=== PATIENT | male | born 1965 | race Caucasian/White ===

== ENCOUNTER 2019-07-02 08:55 | Inpatient (IN) | payer MEDICAID ==
[~2019-07-02] VITALS: Ht 188 cm; Wt 105.2 kg
[2019-07-02] MEDS ORDERED: LISI-661 PO (09:04)
[2019-07-02] MEDS ORDERED: SERT100T12 PO (09:04)
[2019-07-02] MEDS ORDERED: METF-960 PO (09:04)
[2019-07-02] MEDS ORDERED: LITH300C3 PO (09:04)
[2019-07-02] MEDS ORDERED: TRAZ-220 PO (09:04)
[2019-07-02 09:16] LABS: GLUCOSE,POINT OF CARE 135 MG/DL (70-110)
[2019-07-02 09:31] LABS: BASOPHILS % (AUTO) 0.3 % (0.0-2.0); EOSINOPHILS % (AUTO) 3.3 % (1.0-6.0); HEMATOCRIT 40.5 % (41-53); HEMOGLOBIN 13.4 g/dL (13.5-17.5); LYMPHOCYTES # (AUTO) 0.6 K/uL (1.0-4.8); LYMPHOCYTES % (AUTO) 11.4 % (22.0-44.0); MEAN CORPUSCULAR HEMOGLOBIN 28.3 pg (26.0-34.0); MEAN CORPUSCULAR VOLUME 86 fL (80-100); MONOCYTES # (AUTO) 0.5 K/uL (0.1-1.0); MONOCYTES % (AUTO) 10.4 % (2.0-9.0); NEUTROPHILS # (AUTO) 3.9 K/uL (1.8-7.7); NEUTROPHILS % (AUTO) 74.6 % (40.0-70.0); PLATELET COUNT (AUTO) 71 K/uL (150-450); RED BLOOD CELL COUNT(AUTO) 4.73 MIL/uL (4.50-5.90); RED CELL DISTRIBUTION WIDTH 14.1 % (11.5-14.5)
[2019-07-02 09:40] LABS: ANION GAP 10 mmol/L (8-16); CALCIUM, TOTAL 9.4 mg/dL (8.8-10.5); CARBON DIOXIDE 21 mmol/L (22-29); CHLORIDE 106 mmol/L (98-107); CREATININE 1.12 mg/dL (0.60-1.30); GLOMERULAR FILTR. RATE CALC > 60 mL/min (>60); GLUCOSE,RANDOM 143 mg/dL (70-110); SODIUM SERUM 137 mmol/L (136-145); UREA NITROGEN, BLOOD 30 mg/dL (7-18)
[2019-07-02 09:46] LABS: ALANINE AMINOTRANSFERASE 41 U/L (12-78); ALBUMIN 3.2 g/dL (3.4-5.0); ALKALINE PHOSPHATASE 82 U/L (46-116); ASPARTATE AMINOTRANSFERASE 34 U/L (15-37); BILIRUBIN,TOTAL 0.9 mg/dL (0.1-1.0); TOTAL PROTEIN, SERUM 6.5 g/dL (6.4-8.2)
[2019-07-02 10:18] LABS: LITHIUM 0.44 mmol/L (0.60-1.20)
[2019-07-02 10:26] LABS: ACETAMINOPHEN < 2 mcg/mL (10-30)
[2019-07-02] MEDS ORDERED: ZOLPIDEM TARTRATE 10 MG TABLET PO PRN (11:45)
[2019-07-02] MEDS ORDERED: LORazepam 2 MG TABLET PO PRN (11:45)
[2019-07-02] MEDS ORDERED: HALOPERIDOL 5 MG TABLET PO PRN (11:45)
[2019-07-02] MEDS ORDERED: MAGNESIUM HYDROXIDE SUSPENSION 30 ML UDCUP PO PRN (15:00)
[2019-07-02] MEDS ORDERED: LOPERAMIDE HCL 2 MG CAPSULE PO PRN (15:00)
[2019-07-02] MEDS ORDERED: ONDANSETRON HCL 4 MG TABLET PO PRN (15:00)
[2019-07-02] MEDS ORDERED: ALBUTEROL SULFATE HFA 90 MCG/PUFF 8 GM INHALER IH PRN (15:00)
[2019-07-02] MEDS ORDERED: IBUPROFEN 400 MG TABLET PO PRN (15:00)
[2019-07-02] MEDS ORDERED: MAG HYDROX/AL HYDROX/SIMETH ES 30 ML SUSPENSION UDCUP PO PRN (15:00)
[2019-07-02] MEDS ORDERED: NICOTINE 14 MG/24 HOUR PATCH TD PRN (15:00)
[2019-07-02] MEDS ORDERED: ACETAMINOPHEN 325 MG TABLET PO PRN (15:00)
[2019-07-02] MEDS ORDERED: CloNIDine HCL 0.1 MG TABLET PO PRN (15:00)
[2019-07-02] MEDS ORDERED: GuaiFENesin/D-METHORPHAN [SUGAR-FREE] 200-20MG/10 ML SYRUP UDCUP PO PRN (15:00)
[2019-07-02] MEDS ORDERED: PETROLATUM,WHITE 28 GM JELLY TP PRN (15:00)
[2019-07-02] MEDS ORDERED: DOCUSATE SODIUM 100 MG CAPSULE PO PRN (15:00)
[2019-07-02 15:02] VITALS: BP 148/87
[2019-07-02 16:08] VITALS: BP 134/77
[2019-07-02] MEDS: LISINOPRIL 10 MG TABLET PO SCH (20:15)
[2019-07-03 01:00] VITALS: BP 128/76
[2019-07-03] MEDS: MetFORMIN HCL 500 MG TABLET PO SCH (07:27)
[2019-07-03 07:30] LABS: GLUCOMETER DEV NAME(LOC) BV2S.; GLUCOSE,POINT OF CARE 203 MG/DL (70-110)
[2019-07-03 07:53] LABS: BASOPHILS % (AUTO) 0.3 % (0.0-2.0); EOSINOPHILS % (AUTO) 2.5 % (1.0-6.0); HEMOGLOBIN 12.4 g/dL (13.5-17.5); LYMPHOCYTES # (AUTO) 0.5 K/uL (1.0-4.8); LYMPHOCYTES % (AUTO) 14.1 % (22.0-44.0); MEAN CORPUSCULAR HGB CONC 32.6 G/dL (31.0-37.0); MEAN CORPUSCULAR VOLUME 86 fL (80-100); MONOCYTES # (AUTO) 0.3 K/uL (0.1-1.0); MONOCYTES % (AUTO) 8.5 % (2.0-9.0); NEUTROPHILS # (AUTO) 2.8 K/uL (1.8-7.7); NEUTROPHILS % (AUTO) 74.6 % (40.0-70.0); PLATELET COUNT (AUTO) 57 K/uL (150-450); RED BLOOD CELL COUNT(AUTO) 4.42 MIL/uL (4.50-5.90); RED CELL DISTRIBUTION WIDTH 13.9 % (11.5-14.5)
[2019-07-03] MEDS: LISINOPRIL 10 MG TABLET PO SCH (08:09)
[2019-07-03] MEDS: LITHIUM CARBONATE 300 MG CAPSULE PO SCH ×2 (08:09→16:36)
[2019-07-03 08:15] VITALS: BP 142/74
[2019-07-03 08:18] LABS: ALANINE AMINOTRANSFERASE 35 U/L (12-78); ALBUMIN 2.7 g/dL (3.4-5.0); ALKALINE PHOSPHATASE 73 U/L (46-116); ANION GAP 9 mmol/L (8-16); ASPARTATE AMINOTRANSFERASE 29 U/L (15-37); BILIRUBIN,TOTAL 0.7 mg/dL (0.1-1.0); CALCIUM, TOTAL 8.6 mg/dL (8.8-10.5); CARBON DIOXIDE 20 mmol/L (22-29); CHLORIDE 106 mmol/L (98-107); CHOL/HDL RATIO 3.5 (4.2-7.3); CHOLESTEROL 120 mg/dL (131-200); CREATININE 1.02 mg/dL (0.60-1.30); GLOMERULAR FILTR. RATE CALC > 60 mL/min (>60); GLUCOSE,RANDOM 163 mg/dL (70-110); HDL CHOLESTEROL 34 mg/dL (40-60); LDL CHOL (CALC.) 68 mg/dL (0-130); POTASSIUM 5.1 mmol/L (3.5-5.1); SODIUM SERUM 135 mmol/L (136-145); THYROID STIMULATING HORMONE 3.03 uIU/mL (0.36-3.74); TOTAL PROTEIN, SERUM 5.6 g/dL (6.4-8.2); TRIGLYCERIDES 88 mg/dL (15-150); UREA NITROGEN, BLOOD 26 mg/dL (7-18)
[2019-07-03 08:25] LABS: HEMOGLOBIN A1C 6.7 % (4.5-6.2)
[2019-07-03] MEDS: SERTRALINE HCL 100 MG TABLET PO SCH ×2 (20:47→22:02)
[2019-07-03] MEDS: TraZODone HCL 100 MG TABLET PO SCH ×2 (20:47→22:02)
[2019-07-03] MEDS ORDERED: DiphenhydrAMINE HCL 50 MG/ML VIAL IM ONE (21:45)
[2019-07-03] MEDS ORDERED: LORazepam 2 MG/ML VIAL IM ONE (21:45)
[2019-07-03] MEDS ORDERED: HALOPERIDOL LACTATE 5 MG/ML VIAL IM ONE (21:45)
[2019-07-03] MEDS ORDERED: LORazepam 2 MG/ML VIAL ONE (21:45)
[2019-07-03 22:15] VITALS: BP 121/81
[2019-07-04 06:16] LABS: GLUCOMETER DEV NAME(LOC) BV2S.; GLUCOSE,POINT OF CARE 127 MG/DL (70-110)
[2019-07-04] MEDS: MetFORMIN HCL 500 MG TABLET PO SCH (06:48)
[2019-07-04 06:54] VITALS: BP 118/70
[2019-07-04 08:27] VITALS: BP 135/76
[2019-07-04] MEDS: LISINOPRIL 10 MG TABLET PO SCH (09:06)
[2019-07-04] MEDS: LITHIUM CARBONATE 300 MG CAPSULE PO SCH ×3 (09:06→16:59)
[2019-07-04 16:00] VITALS: BP 133/74
[2019-07-04] MEDS: SERTRALINE HCL 100 MG TABLET PO SCH (20:32)
[2019-07-04] MEDS: TraZODone HCL 100 MG TABLET PO SCH (20:32)
[2019-07-05 05:54] VITALS: BP 126/70
[2019-07-05] MEDS ORDERED: PNEUMOCOCCAL VACCINE POLYVALENT 0.5 ML VIAL [PPSV23] IM ONE (06:15)
[2019-07-05 06:21] LABS: GLUCOMETER DEV NAME(LOC) BV2S.; GLUCOSE,POINT OF CARE 117 MG/DL (70-110)
[2019-07-05] MEDS: MetFORMIN HCL 500 MG TABLET PO SCH (07:04)
[2019-07-05 07:29] LABS: ANION GAP 4 mmol/L (8-16); CALCIUM, TOTAL 8.5 mg/dL (8.8-10.5); CARBON DIOXIDE 25 mmol/L (22-29); CHLORIDE 109 mmol/L (98-107); CREATININE 1.07 mg/dL (0.60-1.30); GLOMERULAR FILTR. RATE CALC > 60 mL/min (>60); GLUCOSE,RANDOM 119 mg/dL (70-110); SODIUM SERUM 138 mmol/L (136-145); UREA NITROGEN, BLOOD 25 mg/dL (7-18)
[2019-07-05 08:26] VITALS: BP 142/79
[2019-07-05] MEDS: LITHIUM CARBONATE 300 MG CAPSULE PO SCH ×2 (08:42→16:17)
[2019-07-05] MEDS: LISINOPRIL 10 MG TABLET PO SCH (08:42)
[2019-07-05 16:51] VITALS: BP 123/70
[2019-07-05] MEDS: TraZODone HCL 100 MG TABLET PO SCH (20:14)
[2019-07-05] MEDS: SERTRALINE HCL 100 MG TABLET PO SCH (20:14)
[2019-07-06 05:44] VITALS: BP 126/69
[2019-07-06] MEDS: MetFORMIN HCL 500 MG TABLET PO SCH (06:54)
[2019-07-06 08:39] VITALS: BP 148/85
[2019-07-06] MEDS: LITHIUM CARBONATE 300 MG CAPSULE PO SCH ×2 (08:40→16:39)
[2019-07-06] MEDS: LISINOPRIL 10 MG TABLET PO SCH (08:40)
[2019-07-06 11:52] VITALS: BP 139/79
[2019-07-06 12:07] LABS: GLUCOMETER DEV NAME(LOC) BV2S.; GLUCOSE,POINT OF CARE 139 MG/DL (70-110)
[2019-07-06 16:06] VITALS: BP 138/76
[2019-07-06 16:31] LABS: GLUCOMETER DEV NAME(LOC) BV2S.; GLUCOSE,POINT OF CARE 145 MG/DL (70-110)
[2019-07-06] MEDS: TraZODone HCL 100 MG TABLET PO SCH (20:23)
[2019-07-06] MEDS: SERTRALINE HCL 100 MG TABLET PO SCH (20:23)
[2019-07-07 02:52] VITALS: BP 126/72
[2019-07-07 06:16] LABS: GLUCOMETER DEV NAME(LOC) BV2S.; GLUCOSE,POINT OF CARE 110 MG/DL (70-110)
[2019-07-07] MEDS: MetFORMIN HCL 500 MG TABLET PO SCH (06:39)
[2019-07-07 07:35] LABS: BASOPHILS % (AUTO) 0.3 % (0.0-2.0); HEMATOCRIT 42.4 % (41-53); HEMOGLOBIN 13.9 g/dL (13.5-17.5); LYMPHOCYTES # (AUTO) 0.8 K/uL (1.0-4.8); LYMPHOCYTES % (AUTO) 15.8 % (22.0-44.0); MEAN CORPUSCULAR HEMOGLOBIN 28.3 pg (26.0-34.0); MEAN CORPUSCULAR HGB CONC 32.7 G/dL (31.0-37.0); MEAN CORPUSCULAR VOLUME 86 fL (80-100); MONOCYTES # (AUTO) 0.4 K/uL (0.1-1.0); MONOCYTES % (AUTO) 7.2 % (2.0-9.0); NEUTROPHILS # (AUTO) 3.6 K/uL (1.8-7.7); NEUTROPHILS % (AUTO) 73.7 % (40.0-70.0); RED BLOOD CELL COUNT(AUTO) 4.91 MIL/uL (4.50-5.90); RED CELL DISTRIBUTION WIDTH 13.7 % (11.5-14.5)
[2019-07-07 08:10] VITALS: BP 125/61
[2019-07-07] MEDS: LITHIUM CARBONATE 300 MG CAPSULE PO SCH ×2 (08:14→16:09)
[2019-07-07] MEDS: LISINOPRIL 10 MG TABLET PO SCH (08:14)
[2019-07-07 09:16] LABS: PLATELET COUNT (AUTO) 64 K/uL (150-450)
[2019-07-07 16:03] VITALS: BP 141/70
[2019-07-07] MEDS: SERTRALINE HCL 100 MG TABLET PO SCH (20:08)
[2019-07-07] MEDS: TraZODone HCL 100 MG TABLET PO SCH (20:08)
[2019-07-08 05:32] VITALS: BP 120/61
[2019-07-08 06:06] LABS: GLUCOMETER DEV NAME(LOC) BV2S.; GLUCOSE,POINT OF CARE 179 MG/DL (70-110)
[2019-07-08] MEDS: MetFORMIN HCL 500 MG TABLET PO SCH (06:49)
[2019-07-08] MEDS: LISINOPRIL 10 MG TABLET PO SCH (08:09)
[2019-07-08] MEDS: LITHIUM CARBONATE 300 MG CAPSULE PO SCH ×2 (08:10→16:17)
[2019-07-08 08:36] VITALS: BP 140/67
[2019-07-08 16:13] VITALS: BP 159/79
[2019-07-08 16:55] LABS: GLUCOMETER DEV NAME(LOC) BV2S.; GLUCOSE,POINT OF CARE 124 MG/DL (70-110)
[2019-07-08] MEDS: SERTRALINE HCL 100 MG TABLET PO SCH (20:01)
[2019-07-08] MEDS: TraZODone HCL 100 MG TABLET PO SCH (20:01)
[2019-07-09 00:56] VITALS: BP 140/77
[2019-07-09 03:40] VITALS: BP 141/89
[2019-07-09 06:30] LABS: GLUCOMETER DEV NAME(LOC) BV2S.; GLUCOSE,POINT OF CARE 122 MG/DL (70-110)
[2019-07-09] MEDS: MetFORMIN HCL 500 MG TABLET PO SCH (06:36)
[2019-07-09] MEDS: LISINOPRIL 10 MG TABLET PO SCH (08:05)
[2019-07-09] MEDS: LITHIUM CARBONATE 300 MG CAPSULE PO SCH ×2 (08:05→16:33)
[2019-07-09 08:09] VITALS: BP 137/92
[2019-07-09 11:30] LABS: GLUCOMETER DEV NAME(LOC) BV2S.; GLUCOSE,POINT OF CARE 204 MG/DL (70-110)
[2019-07-09 16:31] LABS: GLUCOMETER DEV NAME(LOC) BV2S.; GLUCOSE,POINT OF CARE 146 MG/DL (70-110)
[2019-07-09 17:00] VITALS: BP 136/84
[2019-07-09] MEDS: SERTRALINE HCL 100 MG TABLET PO SCH (20:01)
[2019-07-09] MEDS: TraZODone HCL 100 MG TABLET PO SCH (20:01)
[2019-07-10 00:43] VITALS: BP 137/87
[2019-07-10 06:06] LABS: GLUCOMETER DEV NAME(LOC) BV2S.; GLUCOSE,POINT OF CARE 127 MG/DL (70-110)
[2019-07-10] MEDS: MetFORMIN HCL 500 MG TABLET PO SCH (06:56)
[2019-07-10 07:26] LABS: BASOPHILS % (AUTO) 0.3 % (0.0-2.0); EOSINOPHILS % (AUTO) 3.1 % (1.0-6.0); HEMATOCRIT 40.1 % (41-53); HEMOGLOBIN 13.1 g/dL (13.5-17.5); LYMPHOCYTES # (AUTO) 0.7 K/uL (1.0-4.8); LYMPHOCYTES % (AUTO) 15.3 % (22.0-44.0); MEAN CORPUSCULAR HEMOGLOBIN 28.1 pg (26.0-34.0); MEAN CORPUSCULAR HGB CONC 32.7 G/dL (31.0-37.0); MEAN CORPUSCULAR VOLUME 86 fL (80-100); MONOCYTES # (AUTO) 0.3 K/uL (0.1-1.0); MONOCYTES % (AUTO) 6.9 % (2.0-9.0); NEUTROPHILS # (AUTO) 3.2 K/uL (1.8-7.7); NEUTROPHILS % (AUTO) 74.4 % (40.0-70.0); PLATELET COUNT (AUTO) 52 K/uL (150-450); RED BLOOD CELL COUNT(AUTO) 4.66 MIL/uL (4.50-5.90); RED CELL DISTRIBUTION WIDTH 13.9 % (11.5-14.5)
[2019-07-10] MEDS: LISINOPRIL 10 MG TABLET PO SCH (07:52)
[2019-07-10] MEDS: LITHIUM CARBONATE 300 MG CAPSULE PO SCH ×2 (07:52→16:29)
[2019-07-10 09:37] VITALS: BP 148/97
[2019-07-10] MEDS ORDERED: LITH300C3 PO (12:37)
[2019-07-10] MEDS ORDERED: SERT100T12 PO (12:37)
[2019-07-10 16:08] VITALS: BP 140/90
== END 2019-07-10 18:59 | disposition home or self-care (01) | DRG 751 ==
LOC: EMS 08:56 → B2S 12:37
PROVIDERS: ADMIT Psychiatry & Neurology Psychiatry; ATTEND Psychiatry & Neurology Psychiatry
DX: F33.2 Major depressive disorder, recurrent severe without psychotic features (principal); E87.5 Hyperkalemia; E11.9 Type 2 diabetes mellitus without complications; D72.819 Decreased white blood cell count, unspecified; F17.210 Nicotine dependence, cigarettes, uncomplicated; F19.90 Other psychoactive substance use, unspecified, uncomplicated; F60.3 Borderline personality disorder; I10 Essential (primary) hypertension; T50.902A Poisoning by unspecified drugs, medicaments and biological substances, intentional self-harm, initial encounter; Y92.89 Other specified places as the place of occurrence of the external cause; Z59.0 Homelessness; Z91.19 Patient's noncompliance with other medical treatment and regimen; Z91.5 Personal history of self-harm; Z79.899 Other long term (current) drug therapy; Z71.51 Drug abuse counseling and surveillance of drug abuser; Z71.6 Tobacco abuse counseling
CPT/HCPCS: 83036; 84443; 93005; G0480; G0481; J1200; J1630; J2060

== ENCOUNTER 2019-11-11 11:09 | Inpatient (IN) | payer MEDICAID ==
[~2019-11-11] VITALS: Ht 188 cm; Wt 116.6 kg
[~2019-11-11 11:09] MED LIST: LISI-661 PO; LITH300C3 PO; METF-960 PO; SERT100T12 PO; TRAZ-257 PO
[2019-11-11] MEDS ORDERED: LOPERAMIDE HCL 2 MG CAPSULE PO PRN (14:15)
[2019-11-11] MEDS ORDERED: MAGNESIUM HYDROXIDE SUSPENSION 30 ML UDCUP PO PRN (14:15)
[2019-11-11] MEDS ORDERED: PROMETHAZINE HCL 25 MG TABLET PO PRN (14:15)
[2019-11-11] MEDS ORDERED: TUBERCULIN, PURIFIED PROTEIN DERIVATIVE 5 TU/0.1 ML SYRINGE ID ONE (14:15)
[2019-11-11] MEDS ORDERED: OLANZapine 5 MG RAPDIS TABLET PO PRN (14:15)
[2019-11-11] MEDS ORDERED: INFLUENZA VIRUS VACCINE QVS 2019-20 (3YR+)/PF 60 MCG/0.5 ML SYRINGE IM ONE (16:30)
[2019-11-11] MEDS ORDERED: PNEUMOCOCCAL VACCINE POLYVALENT 0.5 ML VIAL [PPSV23] IM ONE (16:30)
[2019-11-11 16:53] VITALS: BP 156/93
[2019-11-11] MEDS: THIAMINE HCL 100 MG TABLET PO SCH (17:27)
[2019-11-11] MEDS: LISINOPRIL 10 MG TABLET PO SCH (18:45)
[2019-11-11] MEDS: ZOLPIDEM TARTRATE 10 MG TABLET PO PRN (20:11)
[2019-11-11 20:54] VITALS: BP 138/89
[2019-11-11] MEDS ORDERED: OLANZapine 5 MG RAPDIS TABLET PO SCH (21:00)
[2019-11-12 05:18] VITALS: BP 132/83
[2019-11-12 06:24] LABS: GLUCOMETER DEV NAME(LOC) BV3S.; GLUCOSE,POINT OF CARE 110 MG/DL (70-110)
[2019-11-12] MEDS: MetFORMIN HCL 500 MG TABLET PO SCH (06:56)
[2019-11-12] MEDS: THIAMINE HCL 100 MG TABLET PO SCH ×2 (08:11→16:50)
[2019-11-12] MEDS: FLUoxetine HCL 20 MG CAPSULE PO SCH (08:12)
[2019-11-12] MEDS: LISINOPRIL 10 MG TABLET PO SCH (08:12)
[2019-11-12] MEDS: NALTREXONE HCL 50 MG TABLET PO SCH (08:12)
[2019-11-12] MEDS: MULTIVITAMINS WITH MINERALS, THERAPEUTIC TABLET PO SCH (08:13)
[2019-11-12] MEDS: FOLIC ACID 1 MG TABLET PO SCH (08:14)
[2019-11-12] MEDS ORDERED: OLANZapine 10 MG RAPDIS TABLET PO SCH (21:00)
[2019-11-13] MEDS: LORazepam 2 MG TABLET PO PRN ×3 (00:58→21:22)
[2019-11-13 05:09] VITALS: BP 146/90
[2019-11-13] MEDS: MetFORMIN HCL 500 MG TABLET PO SCH (06:58)
[2019-11-13 07:47] LABS: BASOPHILS % (AUTO) 0.6 % (0.0-2.0); EOSINOPHILS % (AUTO) 3.2 % (1.0-6.0); HEMATOCRIT 34.2 % (41-53); HEMOGLOBIN 11.6 g/dL (13.5-17.5); LYMPHOCYTES # (AUTO) 0.8 K/uL (1.0-4.8); LYMPHOCYTES % (AUTO) 15.3 % (22.0-44.0); MEAN CORPUSCULAR HEMOGLOBIN 28.2 pg (26.0-34.0); MEAN CORPUSCULAR HGB CONC 33.8 G/dL (31.0-37.0); MEAN CORPUSCULAR VOLUME 84 fL (80-100); MONOCYTES # (AUTO) 0.5 K/uL (0.1-1.0); MONOCYTES % (AUTO) 9.5 % (2.0-9.0); NEUTROPHILS # (AUTO) 3.6 K/uL (1.8-7.7); NEUTROPHILS % (AUTO) 71.4 % (40.0-70.0); RED CELL DISTRIBUTION WIDTH 15.5 % (11.5-14.5)
[2019-11-13 07:55] LABS: LITHIUM 0.82 mmol/L (0.60-1.20)
[2019-11-13 08:14] VITALS: BP 161/91
[2019-11-13 08:24] LABS: ALANINE AMINOTRANSFERASE 32 U/L (12-78); ALBUMIN 1.9 g/dL (3.4-5.0); ALKALINE PHOSPHATASE 96 U/L (46-116); ANION GAP 4 mmol/L (8-16); ASPARTATE AMINOTRANSFERASE 29 U/L (15-37); BILIRUBIN,TOTAL 0.4 mg/dL (0.1-1.0); CALCIUM, TOTAL 8.4 mg/dL (8.8-10.5); CARBON DIOXIDE 26 mmol/L (22-29); CHLORIDE 109 mmol/L (98-107); CHOL/HDL RATIO 4.1 (4.2-7.3); CHOLESTEROL 132 mg/dL (131-200); CREATININE 1.06 mg/dL (0.60-1.30); FREE T4 (FREE THYROXINE) 0.91 ng/dL (0.76-1.46); GLOMERULAR FILTR. RATE CALC > 60 mL/min (>60); GLUCOSE,RANDOM 101 mg/dL (70-110); HDL CHOLESTEROL 32 mg/dL (40-60); LDL CHOL (CALC.) 82 mg/dL (0-130); POTASSIUM 4.6 mmol/L (3.5-5.1); SODIUM SERUM 139 mmol/L (136-145); THYROID STIMULATING HORMONE 3.75 uIU/mL (0.36-3.74); TOTAL PROTEIN, SERUM 5.1 g/dL (6.4-8.2); TRIGLYCERIDES 92 mg/dL (15-150); UREA NITROGEN, BLOOD 22 mg/dL (7-18)
[2019-11-13 08:39] LABS: HEMOGLOBIN A1C 5.8 % (4.5-6.2)
[2019-11-13 09:15] LABS: PLATELET COUNT (AUTO) 81 K/uL (150-450)
[2019-11-13] MEDS: THIAMINE HCL 100 MG TABLET PO SCH ×2 (09:17→17:22)
[2019-11-13] MEDS: NALTREXONE HCL 50 MG TABLET PO SCH (09:17)
[2019-11-13] MEDS: FOLIC ACID 1 MG TABLET PO SCH (09:17)
[2019-11-13] MEDS: LISINOPRIL 10 MG TABLET PO SCH (09:18)
[2019-11-13] MEDS: MULTIVITAMINS WITH MINERALS, THERAPEUTIC TABLET PO SCH (09:18)
[2019-11-13] MEDS: FLUoxetine HCL 20 MG CAPSULE PO SCH (09:18)
[2019-11-13 16:00] VITALS: BP 152/74
[2019-11-13] MEDS: MAG HYDROX/AL HYDROX/SIMETH ES 30 ML SUSPENSION UDCUP PO PRN (16:31)
[2019-11-13 17:19] LABS: GLUCOMETER DEV NAME(LOC) BV3S.; GLUCOSE,POINT OF CARE 90 MG/DL (70-110)
[2019-11-13] MEDS: LITHIUM CARBONATE 300 MG CAPSULE PO SCH (17:22)
[2019-11-13] MEDS: ZOLPIDEM TARTRATE 10 MG TABLET PO PRN (20:07)
[2019-11-13] MEDS: HydrOXYzine PAMOATE 50 MG CAPSULE PO PRN (20:45)
[2019-11-13 21:45] VITALS: BP 155/97
[2019-11-13] MEDS: GuaiFENesin/D-METHORPHAN [SUGAR-FREE] 200-20MG/10 ML SYRUP UDCUP PO PRN (22:18)
[2019-11-14 01:52] VITALS: BP 185/106
[2019-11-14] MEDS: CloNIDine HCL 0.1 MG TABLET PO SCH ×3 (02:00→16:22)
[2019-11-14 05:45] VITALS: BP 156/79
[2019-11-14] MEDS: MetFORMIN HCL 500 MG TABLET PO SCH (06:33)
[2019-11-14 06:38] LABS: GLUCOMETER DEV NAME(LOC) BV3S.; GLUCOSE,POINT OF CARE 101 MG/DL (70-110)
[2019-11-14 08:14] VITALS: BP 154/76
[2019-11-14] MEDS: MULTIVITAMINS WITH MINERALS, THERAPEUTIC TABLET PO SCH (08:16)
[2019-11-14] MEDS: FOLIC ACID 1 MG TABLET PO SCH (08:16)
[2019-11-14] MEDS: NALTREXONE HCL 50 MG TABLET PO SCH (08:16)
[2019-11-14] MEDS: LITHIUM CARBONATE 300 MG CAPSULE PO SCH ×2 (08:16→16:22)
[2019-11-14] MEDS: THIAMINE HCL 100 MG TABLET PO SCH ×2 (08:16→16:21)
[2019-11-14] MEDS: SERTRALINE HCL 50 MG TABLET PO SCH (08:16)
[2019-11-14] MEDS: LISINOPRIL 10 MG TABLET PO SCH ×2 (08:20→16:21)
[2019-11-14 17:15] VITALS: BP 139/88
[2019-11-14 21:06] LABS: GLUCOMETER DEV NAME(LOC) BV3S.; GLUCOSE,POINT OF CARE 82 MG/DL (70-110)
[2019-11-15 01:26] VITALS: BP 177/94
[2019-11-15] MEDS: HydrOXYzine PAMOATE 50 MG CAPSULE PO PRN (02:42)
[2019-11-15 06:26] LABS: GLUCOMETER DEV NAME(LOC) BV3S.; GLUCOSE,POINT OF CARE 100 MG/DL (70-110)
[2019-11-15] MEDS: MetFORMIN HCL 500 MG TABLET PO SCH (06:32)
[2019-11-15 08:18] VITALS: BP 140/83
[2019-11-15] MEDS: LITHIUM CARBONATE 300 MG CAPSULE PO SCH ×2 (08:38→16:02)
[2019-11-15] MEDS: FOLIC ACID 1 MG TABLET PO SCH (08:38)
[2019-11-15] MEDS: NALTREXONE HCL 50 MG TABLET PO SCH (08:38)
[2019-11-15] MEDS: THIAMINE HCL 100 MG TABLET PO SCH ×2 (08:38→16:02)
[2019-11-15] MEDS: MULTIVITAMINS WITH MINERALS, THERAPEUTIC TABLET PO SCH (08:38)
[2019-11-15] MEDS: CloNIDine HCL 0.1 MG TABLET PO SCH ×2 (08:38→16:01)
[2019-11-15] MEDS: SERTRALINE HCL 50 MG TABLET PO SCH (08:38)
[2019-11-15] MEDS: LISINOPRIL 10 MG TABLET PO SCH ×2 (08:38→16:02)
[2019-11-15 16:03] VITALS: BP 153/93
[2019-11-15] MEDS: MAG HYDROX/AL HYDROX/SIMETH ES 30 ML SUSPENSION UDCUP PO PRN (20:42)
[2019-11-15 20:49] LABS: GLUCOMETER DEV NAME(LOC) BV3S.; GLUCOSE,POINT OF CARE 80 MG/DL (70-110)
[2019-11-15] MEDS: ZOLPIDEM TARTRATE 10 MG TABLET PO PRN (20:49)
[2019-11-15] MEDS: GuaiFENesin/D-METHORPHAN [SUGAR-FREE] 200-20MG/10 ML SYRUP UDCUP PO PRN (21:26)
[2019-11-15] MEDS: LORazepam 2 MG TABLET PO PRN (23:47)
[2019-11-16 00:10] VITALS: BP 160/90
[2019-11-16 05:42] VITALS: BP 167/94
[2019-11-16] MEDS: GuaiFENesin/D-METHORPHAN [SUGAR-FREE] 200-20MG/10 ML SYRUP UDCUP PO PRN ×2 (05:47→09:29)
[2019-11-16 06:29] LABS: GLUCOMETER DEV NAME(LOC) BV3S.; GLUCOSE,POINT OF CARE 126 MG/DL (70-110)
[2019-11-16] MEDS: MetFORMIN HCL 500 MG TABLET PO SCH (06:31)
[2019-11-16] MEDS: LITHIUM CARBONATE 300 MG CAPSULE PO SCH ×2 (08:04→16:51)
[2019-11-16] MEDS: THIAMINE HCL 100 MG TABLET PO SCH ×2 (08:05→16:51)
[2019-11-16] MEDS: CloNIDine HCL 0.1 MG TABLET PO SCH ×2 (08:05→16:51)
[2019-11-16] MEDS: SERTRALINE HCL 50 MG TABLET PO SCH (08:05)
[2019-11-16] MEDS: FOLIC ACID 1 MG TABLET PO SCH (08:06)
[2019-11-16] MEDS: NALTREXONE HCL 50 MG TABLET PO SCH (08:06)
[2019-11-16] MEDS: MULTIVITAMINS WITH MINERALS, THERAPEUTIC TABLET PO SCH (08:06)
[2019-11-16] MEDS: LISINOPRIL 10 MG TABLET PO SCH ×2 (08:06→16:51)
[2019-11-16 16:02] VITALS: BP 153/87
[2019-11-16] MEDS: LORazepam 2 MG TABLET PO PRN (16:51)
[2019-11-16 17:28] LABS: GLUCOMETER DEV NAME(LOC) BV3S.; GLUCOSE,POINT OF CARE 136 MG/DL (70-110)
[2019-11-17 00:53] VITALS: BP 137/76
[2019-11-17] MEDS: GuaiFENesin/D-METHORPHAN [SUGAR-FREE] 200-20MG/10 ML SYRUP UDCUP PO PRN ×3 (03:36→22:32)
[2019-11-17] MEDS: MetFORMIN HCL 500 MG TABLET PO SCH (06:31)
[2019-11-17 06:38] LABS: GLUCOMETER DEV NAME(LOC) BV3S.; GLUCOSE,POINT OF CARE 99 MG/DL (70-110)
[2019-11-17 07:52] LABS: BASOPHILS % (AUTO) 0.2 % (0.0-2.0); EOSINOPHILS % (AUTO) 2.7 % (1.0-6.0); HEMOGLOBIN 11.9 g/dL (13.5-17.5); LYMPHOCYTES % (AUTO) 13.5 % (22.0-44.0); MEAN CORPUSCULAR HEMOGLOBIN 28.5 pg (26.0-34.0); MEAN CORPUSCULAR HGB CONC 34.1 G/dL (31.0-37.0); MEAN CORPUSCULAR VOLUME 84 fL (80-100); MONOCYTES # (AUTO) 0.6 K/uL (0.1-1.0); NEUTROPHILS # (AUTO) 5.3 K/uL (1.8-7.7); NEUTROPHILS % (AUTO) 74.6 % (40.0-70.0); PLATELET COUNT (AUTO) 100 K/uL (150-450); RED BLOOD CELL COUNT(AUTO) 4.18 MIL/uL (4.50-5.90)
[2019-11-17 08:08] VITALS: BP 149/73
[2019-11-17] MEDS: SERTRALINE HCL 50 MG TABLET PO SCH (08:27)
[2019-11-17] MEDS: FOLIC ACID 1 MG TABLET PO SCH (08:27)
[2019-11-17] MEDS: LITHIUM CARBONATE 300 MG CAPSULE PO SCH ×2 (08:27→17:28)
[2019-11-17] MEDS: NALTREXONE HCL 50 MG TABLET PO SCH (08:27)
[2019-11-17] MEDS: MULTIVITAMINS WITH MINERALS, THERAPEUTIC TABLET PO SCH (08:27)
[2019-11-17] MEDS: THIAMINE HCL 100 MG TABLET PO SCH ×2 (08:27→17:28)
[2019-11-17] MEDS: CloNIDine HCL 0.1 MG TABLET PO SCH ×2 (08:27→17:28)
[2019-11-17] MEDS: LISINOPRIL 10 MG TABLET PO SCH ×2 (08:28→17:28)
[2019-11-17] MEDS: ACETAMINOPHEN 325 MG TABLET PO PRN (09:28)
[2019-11-17 16:00] VITALS: BP 137/85
[2019-11-17] MEDS: MAG HYDROX/AL HYDROX/SIMETH ES 30 ML SUSPENSION UDCUP PO PRN (16:25)
[2019-11-17 17:11] LABS: GLUCOMETER DEV NAME(LOC) BV3S.; GLUCOSE,POINT OF CARE 99 MG/DL (70-110)
[2019-11-17] MEDS: LORazepam 2 MG TABLET PO PRN (17:28)
[2019-11-17] MEDS: ZOLPIDEM TARTRATE 10 MG TABLET PO PRN (22:37)
[2019-11-18 01:28] VITALS: BP 150/78
[2019-11-18] MEDS: GuaiFENesin/D-METHORPHAN [SUGAR-FREE] 200-20MG/10 ML SYRUP UDCUP PO PRN (04:46)
[2019-11-18] MEDS: ACETAMINOPHEN 325 MG TABLET PO PRN (04:47)
[2019-11-18 06:18] LABS: GLUCOMETER DEV NAME(LOC) BV3S.; GLUCOSE,POINT OF CARE 104 MG/DL (70-110)
[2019-11-18] MEDS: MetFORMIN HCL 500 MG TABLET PO SCH (06:26)
[2019-11-18 08:07] VITALS: BP 153/77
[2019-11-18] MEDS: NALTREXONE HCL 50 MG TABLET PO SCH (08:35)
[2019-11-18] MEDS: SERTRALINE HCL 50 MG TABLET PO SCH (08:35)
[2019-11-18] MEDS: CloNIDine HCL 0.1 MG TABLET PO SCH ×2 (08:35→17:01)
[2019-11-18] MEDS: FOLIC ACID 1 MG TABLET PO SCH (08:35)
[2019-11-18] MEDS: THIAMINE HCL 100 MG TABLET PO SCH ×2 (08:35→17:01)
[2019-11-18] MEDS: LITHIUM CARBONATE 300 MG CAPSULE PO SCH ×2 (08:36→17:01)
[2019-11-18] MEDS: MULTIVITAMINS WITH MINERALS, THERAPEUTIC TABLET PO SCH (08:36)
[2019-11-18] MEDS: LISINOPRIL 10 MG TABLET PO SCH ×2 (08:37→17:01)
[2019-11-18] MEDS ORDERED: FOLI1 PO (11:17)
[2019-11-18] MEDS ORDERED: NALT50TA6 PO (11:17)
[2019-11-18] MEDS ORDERED: LITH300C3 PO (11:17)
[2019-11-18] MEDS ORDERED: ZOLP5 PO (11:17)
[2019-11-18] MEDS ORDERED: OLAN5TAB2 PO (11:17)
[2019-11-18] MEDS ORDERED: MULT-1239 PO (11:17)
[2019-11-18] MEDS ORDERED: THIA100T67 PO (11:17)
[2019-11-18] MEDS ORDERED: LORA-1001 PO (11:17)
[2019-11-18] MEDS ORDERED: METF-960 PO (11:17)
[2019-11-18] MEDS ORDERED: SERT50TA12 PO (11:17)
[2019-11-18] MEDS ORDERED: CLON0.1T2 PO (11:17)
[2019-11-18 16:55] VITALS: BP 146/84
[2019-11-18] MEDS: LORazepam 2 MG TABLET PO PRN (17:02)
[2019-11-18 17:21] LABS: GLUCOMETER DEV NAME(LOC) BV3S.; GLUCOSE,POINT OF CARE 90 MG/DL (70-110)
[2019-11-18] MEDS: ZOLPIDEM TARTRATE 10 MG TABLET PO PRN (20:32)
[2019-11-19 03:58] VITALS: BP 150/76
[2019-11-19 06:27] LABS: GLUCOMETER DEV NAME(LOC) BV3S.; GLUCOSE,POINT OF CARE 156 MG/DL (70-110)
[2019-11-19] MEDS: MetFORMIN HCL 500 MG TABLET PO SCH (06:36)
[2019-11-19 08:00] VITALS: BP 136/78
[2019-11-19] MEDS: LISINOPRIL 10 MG TABLET PO SCH ×2 (08:05→16:00)
[2019-11-19] MEDS: SERTRALINE HCL 50 MG TABLET PO SCH (08:05)
[2019-11-19] MEDS: MULTIVITAMINS WITH MINERALS, THERAPEUTIC TABLET PO SCH (08:05)
[2019-11-19] MEDS: FOLIC ACID 1 MG TABLET PO SCH (08:05)
[2019-11-19] MEDS: CloNIDine HCL 0.1 MG TABLET PO SCH ×2 (08:05→16:00)
[2019-11-19] MEDS: LITHIUM CARBONATE 300 MG CAPSULE PO SCH ×2 (08:06→16:00)
[2019-11-19] MEDS: THIAMINE HCL 100 MG TABLET PO SCH ×2 (08:07→16:00)
[2019-11-19] MEDS: NALTREXONE HCL 50 MG TABLET PO SCH (08:07)
[2019-11-19 16:01] VITALS: BP 124/64
[2019-11-19 16:52] LABS: GLUCOMETER DEV NAME(LOC) BV3S.; GLUCOSE,POINT OF CARE 125 MG/DL (70-110)
[2019-11-19] MEDS: ZOLPIDEM TARTRATE 10 MG TABLET PO PRN (20:35)
[2019-11-19 20:46] LABS: GLUCOMETER DEV NAME(LOC) BV3S.; GLUCOSE,POINT OF CARE 117 MG/DL (70-110)
[2019-11-20 00:52] VITALS: BP 152/80
[2019-11-20] MEDS: MAG HYDROX/AL HYDROX/SIMETH ES 30 ML SUSPENSION UDCUP PO PRN (05:49)
[2019-11-20 06:42] LABS: GLUCOMETER DEV NAME(LOC) BV3N.; GLUCOSE,POINT OF CARE 129 MG/DL (70-110)
[2019-11-20] MEDS: MetFORMIN HCL 500 MG TABLET PO SCH (06:59)
[2019-11-20 08:44] LABS: AMPHET/METH SCREEN,URINE NEGATIVE (NEGATIVE); BARBITURATE SCREEN, URINE NEGATIVE (NEGATIVE); BENZODIAZEPINES SCREEN,URINE NEGATIVE (NEGATIVE); CANNABINOID SCREEN,URINE NEGATIVE (NEGATIVE); COCAINE SCREEN,URINE NEGATIVE (NEGATIVE); METHADONE SCREEN, URINE NEGATIVE (NEGATIVE); OPIATE SCREEN,URINE NEGATIVE (NEGATIVE)
[2019-11-20 08:46] LABS: PHENCYCLIDINE SCREEN,URINE NEGATIVE (NEGATIVE)
[2019-11-20] MEDS: NALTREXONE HCL 50 MG TABLET PO SCH (08:56)
[2019-11-20] MEDS: MULTIVITAMINS WITH MINERALS, THERAPEUTIC TABLET PO SCH (08:57)
[2019-11-20] MEDS: THIAMINE HCL 100 MG TABLET PO SCH ×2 (08:57→15:59)
[2019-11-20] MEDS: CloNIDine HCL 0.1 MG TABLET PO SCH ×2 (08:57→15:59)
[2019-11-20] MEDS: FOLIC ACID 1 MG TABLET PO SCH (08:58)
[2019-11-20] MEDS: LITHIUM CARBONATE 300 MG CAPSULE PO SCH ×2 (08:58→15:59)
[2019-11-20] MEDS: LISINOPRIL 10 MG TABLET PO SCH ×2 (08:58→15:59)
[2019-11-20] MEDS ORDERED: SERTRALINE HCL 50 MG TABLET PO SCH (09:00)
[2019-11-20] MEDS ORDERED: NEOMYCIN/POLYMYXIN B/HYDROCORT 10 ML OTIC SUSPENSION AD ONE (09:00)
[2019-11-20] MEDS ORDERED: SERT50TA12 PO (14:52)
[2019-11-20] MEDS ORDERED: LITH300C3 PO (14:52)
[2019-11-20] MEDS ORDERED: NALT50TA PO (14:52)
[2019-11-20 16:04] VITALS: BP 138/76
[2019-11-20] MEDS ORDERED: METF-446 PO ×3 (16:46→16:48)
== END 2019-11-20 18:20 | disposition home or self-care (01) | DRG 753 ==
LOC: UNDOADMIN 15:59 → B3A 15:59
PROVIDERS: ADMIT Psychiatry & Neurology Psychiatry; ATTEND Psychiatry & Neurology Psychiatry
PROC: 3E02340 Introduction of Influenza Vaccine into Muscle, Percutaneous Approach (ICD-10-PCS; principal; 2019-11-12)
PROC: 3E0234Z Introduction of Serum, Toxoid and Vaccine into Muscle, Percutaneous Approach (ICD-10-PCS; 2019-11-12)
DX: F31.4 Bipolar disorder, current episode depressed, severe, without psychotic features (principal); R45.851 Suicidal ideations; E11.9 Type 2 diabetes mellitus without complications; D64.9 Anemia, unspecified; I10 Essential (primary) hypertension; Z23 Encounter for immunization; Z91.14 Patient's other noncompliance with medication regimen
CPT/HCPCS: 80307; 83036; 84436; 84439; 84443; 86592; 87081; 90686; 90732

== ENCOUNTER 2019-11-18 10:29 | Emergency (ER) | payer MEDICAID ==
[~2019-11-18] VITALS: Ht 188 cm; Wt 111.4 kg
[2019-11-18] MEDS ORDERED: SERT50TA12 PO (11:17)
[2019-11-18] MEDS ORDERED: OLAN5TAB2 PO (11:17)
[2019-11-18] MEDS ORDERED: MULT-1239 PO (11:17)
[2019-11-18] MEDS ORDERED: NALT50TA6 PO (11:17)
[2019-11-18] MEDS ORDERED: ZOLP5 PO (11:17)
[2019-11-18] MEDS ORDERED: CLON0.1T2 PO (11:17)
[2019-11-18] MEDS ORDERED: THIA100T67 PO (11:17)
[2019-11-18] MEDS ORDERED: METF-960 PO (11:17)
[2019-11-18] MEDS ORDERED: FOLI1 PO (11:17)
[2019-11-18] MEDS ORDERED: LITH300C3 PO (11:17)
[2019-11-18] MEDS ORDERED: LORA-1001 PO (11:17)
[2019-11-18 11:30] LABS: GLUCOSE,POINT OF CARE 117 MG/DL (70-110)
[2019-11-18 12:20] LABS: BASOPHILS % (AUTO) 0.3 % (0.0-2.0); EOSINOPHILS % (AUTO) 2.2 % (1.0-6.0); LYMPHOCYTES # (AUTO) 0.6 K/uL (1.0-4.8); LYMPHOCYTES % (AUTO) 9.2 % (22.0-44.0); MEAN CORPUSCULAR HEMOGLOBIN 28.1 pg (26.0-34.0); MEAN CORPUSCULAR HGB CONC 33.5 G/dL (31.0-37.0); MEAN CORPUSCULAR VOLUME 84 fL (80-100); MONOCYTES # (AUTO) 0.3 K/uL (0.1-1.0); MONOCYTES % (AUTO) 5.5 % (2.0-9.0); NEUTROPHILS # (AUTO) 5.1 K/uL (1.8-7.7); NEUTROPHILS % (AUTO) 82.8 % (40.0-70.0); PLATELET COUNT (AUTO) 103 K/uL (150-450); RED BLOOD CELL COUNT(AUTO) 4.29 MIL/uL (4.50-5.90)
[2019-11-18 12:33] LABS: PROTHROMBIN TIME 10.1 SEC (9.4-11.6)
[2019-11-18 12:34] LABS: CALCIUM, TOTAL 8.7 mg/dL (8.8-10.5); CREATININE 1.28 mg/dL (0.60-1.30); POTASSIUM 5.5 mmol/L (3.5-5.1)
[2019-11-18 12:39] LABS: ALBUMIN 2.2 g/dL (3.4-5.0); BILIRUBIN,TOTAL 0.4 mg/dL (0.1-1.0); TOTAL PROTEIN, SERUM 5.7 g/dL (6.4-8.2)
[2019-11-18 15:08] VITALS: BP 125/92
== END 2019-11-18 16:15 | disposition home or self-care (01) ==
LOC: EMS 10:30
DX: R18.8 Other ascites (principal); E11.9 Type 2 diabetes mellitus without complications; I10 Essential (primary) hypertension; K74.60 Unspecified cirrhosis of liver; F31.9 Bipolar disorder, unspecified; F17.210 Nicotine dependence, cigarettes, uncomplicated; Z86.19 Personal history of other infectious and parasitic diseases; Z79.899 Other long term (current) drug therapy
CPT/HCPCS: 49083; 76700; 76942; 86850; 86900; 86901

== ENCOUNTER 2024-10-26 21:43 | Inpatient (IN) | payer MEDICARE, OTHER ==
[~2024-10-26] VITALS: Ht 188 cm; Wt 111.4 kg
[~2024-10-26 21:43] MED LIST changes: +CLON0.1T2 PO; -LISI-661 PO; +LISI-893 PO; +METF-1211 PO; -METF-960 PO; +NALT50TA33 PO; +NALT50TA6 PO; +SERT-158 PO; +SERT-439 PO; -SERT100T12 PO; -TRAZ-257 PO
[2024-10-26] MEDS: TraMADol HCL 50 MG TABLET PO ONE (22:55)
[2024-10-26 23:23] LABS: CALCIUM, TOTAL 8.1 mg/dL (8.8-10.5); CREATININE 5.57 mg/dL (0.60-1.30); POTASSIUM 4.6 mmol/L (3.5-5.1)
[2024-10-26 23:24] LABS: BASOPHILS % (AUTO) 0.3 % (0.0-2.0); EOSINOPHILS % (AUTO) 5.1 % (1.0-6.0); HEMATOCRIT 24.7 % (41-53); HEMOGLOBIN 8.6 g/dL (13.5-17.5); LYMPHOCYTES # (AUTO) 0.8 K/uL (1.0-4.8); LYMPHOCYTES % (AUTO) 16.2 % (22.0-44.0); MEAN CORPUSCULAR HEMOGLOBIN 31.3 pg (26.0-34.0); MEAN CORPUSCULAR HGB CONC 34.7 G/dL (31.0-37.0); MEAN CORPUSCULAR VOLUME 90 fL (80-100); MONOCYTES # (AUTO) 0.5 K/uL (0.1-1.0); MONOCYTES % (AUTO) 10.6 % (2.0-9.0); NEUTROPHILS # (AUTO) 3.4 K/uL (1.8-7.7); NEUTROPHILS % (AUTO) 67.8 % (40.0-70.0); PLATELET COUNT (AUTO) 122 K/uL (150-450); RED BLOOD CELL COUNT(AUTO) 2.74 MIL/uL (4.50-5.90); RED CELL DISTRIBUTION WIDTH 14.5 % (11.5-14.5); WHITE BLOOD COUNT (AUTO) 5.1 K/uL (4.5-11.0)
[2024-10-26 23:31] LABS: TROPONIN I-HIGH SENSITIVITY 22 ng/L (<76)
[2024-10-26 23:48] LABS: ALBUMIN 2.9 g/dL (3.4-5.0); BILIRUBIN,DIRECT 0.1 mg/dL (0.00-0.20); BILIRUBIN,TOTAL 0.5 mg/dL (0.1-1.0); TOTAL PROTEIN, SERUM 6.4 g/dL (6.4-8.2)
[2024-10-26] MEDS: NITROGLYCERIN 2% (1 GM=INCH) OINTMENT PACKET TP SCH (23:52)
[2024-10-26] MEDS: ONDANSETRON HCL 4 MG/2 ML VIAL IVP PRN (23:52)
[2024-10-27] MEDS ORDERED: IOHEXOL 350 MG/ML 100 ML VIAL ONE (00:04)
[2024-10-27] MEDS ORDERED: SODIUM CHLORIDE 0.9% 100 ML ONE (00:05)
[2024-10-27] MEDS ORDERED: NALOXONE HCL 1 MG/ML 2 ML SYRINGE IVP PRN (00:15)
[2024-10-27] MEDS: AmLODIPine BESYLATE 5 MG TABLET PO SCH (00:51)
[2024-10-27] MEDS: HYDROmorphone HCL 2 MG/ML SYRINGE IVP PRN (00:52)
[2024-10-27 01:28] LABS: % IRON SATURATION 29.4 % (30-44)
[2024-10-27 06:51] LABS: BASOPHILS % (AUTO) 0.4 % (0.0-2.0); EOSINOPHILS % (AUTO) 5.7 % (1.0-6.0); HEMATOCRIT 25.7 % (41-53); HEMOGLOBIN 8.9 g/dL (13.5-17.5); LYMPHOCYTES # (AUTO) 0.9 K/uL (1.0-4.8); LYMPHOCYTES % (AUTO) 19.5 % (22.0-44.0); MEAN CORPUSCULAR HEMOGLOBIN 31.4 pg (26.0-34.0); MEAN CORPUSCULAR HGB CONC 34.7 G/dL (31.0-37.0); MEAN CORPUSCULAR VOLUME 90 fL (80-100); MONOCYTES # (AUTO) 0.5 K/uL (0.1-1.0); MONOCYTES % (AUTO) 11.4 % (2.0-9.0); NEUTROPHILS # (AUTO) 2.8 K/uL (1.8-7.7); PLATELET COUNT (AUTO) 110 K/uL (150-450); RED BLOOD CELL COUNT(AUTO) 2.84 MIL/uL (4.50-5.90); RED CELL DISTRIBUTION WIDTH 14.5 % (11.5-14.5); WHITE BLOOD COUNT (AUTO) 4.5 K/uL (4.5-11.0)
[2024-10-27 07:01] LABS: CALCIUM, TOTAL 8.2 mg/dL (8.8-10.5); CREATININE 5.53 mg/dL (0.60-1.30); MAGNESIUM 1.7 mg/dL (1.80-2.40); POTASSIUM 5.1 mmol/L (3.5-5.1)
[2024-10-27] MEDS: HEPARIN SODIUM,PORCINE 5,000 UNITS/ML VIAL SQ SCH (09:00)
[2024-10-27] MEDS: DOCUSATE SODIUM 100 MG CAPSULE PO SCH (09:00)
[2024-10-27 10:33] VITALS: BP 136/77; PULSE 69; RESP 18; TEMP 97.7; O2SAT 97
[2024-10-27 11:26] VITALS: BP 145/74; PULSE 76; RESP 16; TEMP 98.1; O2SAT 96
[2024-10-27 16:29] VITALS: BP 116/76; PULSE 77; RESP 18; TEMP 97.9; O2SAT 97
[2024-10-27 20:26] VITALS: BP 155/85; PULSE 68; RESP 19; TEMP 98.2; O2SAT 96
[2024-10-28] VITALS (14 sets, daily range): BP systolic 104–184; BP diastolic 65–92; PULSE 69–89; RESP 18; TEMP 97.2–98.4; O2SAT 95–100
[2024-10-28] MEDS: ZOLPIDEM TARTRATE 5 MG TABLET PO PRN (00:41)
[2024-10-28 04:47] LABS: APPEARANCE,URINE CLEAR (CLEAR); BILIRUBIN,URINE NEGATIVE (NEGATIVE); COLOR,URINE LIGHT YELLOW (YELLOW); GLUCOSE, URINE (UA) 300-500 mg/dL (NEGATIVE); KETONES,URINE NEGATIVE (NEGATIVE); LEUKOCYTE ESTERASE ,URINE NEGATIVE (NEGATIVE); NITRATE,URINE NEGATIVE (NEGATIVE); OCCULT BLOOD,URINE NEGATIVE (NEGATIVE); PROTEIN,URINE >600,SEE CONFIRM mg/dL (NEGATIVE); SPECIFIC GRAVITIY, URINE 1.027 (1.003-1.030); UROBILINOGEN,URINE <=1.0 mg/dL (<=1.0)
[2024-10-28 04:52] LABS: BACTERIA,URINE None Seen /HPF (None Seen); RBC,URINE None Seen /HPF (0-2); SULFOSALICYLIC ACID,URINE 4+ (Negative); WBC,URINE None Seen /HPF (0-5)
[2024-10-28 04:53] LABS: SQUAMOUS EPITHELIAL CELL,UR Few /LPF (None Seen)
[2024-10-28] MEDS: PARICALCITOL 1 MCG CAPSULE PO SCH (08:43)
[2024-10-28] MEDS: SERTRALINE HCL 50 MG TABLET PO SCH (08:46)
[2024-10-28 11:52] LABS: BASOPHILS % (AUTO) 0.3 % (0.0-2.0); EOSINOPHILS % (AUTO) 3.5 % (1.0-6.0); HEMATOCRIT 23.4 % (41-53); LYMPHOCYTES # (AUTO) 0.6 K/uL (1.0-4.8); LYMPHOCYTES % (AUTO) 12.1 % (22.0-44.0); MEAN CORPUSCULAR HEMOGLOBIN 30.9 pg (26.0-34.0); MEAN CORPUSCULAR HGB CONC 34.4 G/dL (31.0-37.0); MEAN CORPUSCULAR VOLUME 90 fL (80-100); MONOCYTES # (AUTO) 0.3 K/uL (0.1-1.0); MONOCYTES % (AUTO) 6.9 % (2.0-9.0); NEUTROPHILS # (AUTO) 3.8 K/uL (1.8-7.7); NEUTROPHILS % (AUTO) 77.2 % (40.0-70.0); PLATELET COUNT (AUTO) 98 K/uL (150-450); RED CELL DISTRIBUTION WIDTH 14.2 % (11.5-14.5); WHITE BLOOD COUNT (AUTO) 4.9 K/uL (4.5-11.0)
[2024-10-28 12:10] LABS: CALCIUM, TOTAL 7.9 mg/dL (8.8-10.5); CREATININE 6.14 mg/dL (0.60-1.30)
[2024-10-28] MEDS: SODIUM POLYSTYRENE SULFONATE 15 GM/60 ML SUSPENSION BOTTLE PO ONE (14:24)
[2024-10-28] MEDS ORDERED: LIDOCAINE/PF 1% 2 ML VIAL ID ONE (14:45)
[2024-10-29] VITALS (13 sets, daily range): BP systolic 122–156; BP diastolic 59–95; PULSE 60–104; RESP 18–20; TEMP 98–98.2; O2SAT 94–100
[2024-10-29] MEDS: ACETAMINOPHEN 325 MG TABLET PO PRN (05:53)
[2024-10-29 07:13] LABS: BASOPHILS % (AUTO) 0.4 % (0.0-2.0); EOSINOPHILS % (AUTO) 3.4 % (1.0-6.0); HEMATOCRIT 23.2 % (41-53); HEMOGLOBIN 8.1 g/dL (13.5-17.5); LYMPHOCYTES # (AUTO) 0.6 K/uL (1.0-4.8); LYMPHOCYTES % (AUTO) 11.7 % (22.0-44.0); MEAN CORPUSCULAR HGB CONC 34.8 G/dL (31.0-37.0); MEAN CORPUSCULAR VOLUME 89 fL (80-100); MONOCYTES # (AUTO) 0.4 K/uL (0.1-1.0); MONOCYTES % (AUTO) 8.3 % (2.0-9.0); NEUTROPHILS # (AUTO) 4.1 K/uL (1.8-7.7); NEUTROPHILS % (AUTO) 76.2 % (40.0-70.0); PLATELET COUNT (AUTO) 99 K/uL (150-450); RED CELL DISTRIBUTION WIDTH 14.5 % (11.5-14.5); WHITE BLOOD COUNT (AUTO) 5.4 K/uL (4.5-11.0)
[2024-10-29 07:38] LABS: CALCIUM, TOTAL 7.8 mg/dL (8.8-10.5); CREATININE 5.06 mg/dL (0.60-1.30); POTASSIUM 3.9 mmol/L (3.5-5.1)
[2024-10-29] MEDS ORDERED: LIDOCAINE/PF 1% 2 ML VIAL CAUDAL ONE ×2 (12:33→17:56)
[2024-10-29] MEDS: EPOETIN ALFA 10,000 UNITS/ML VIAL SQ SCH (13:33)
[2024-10-30 02:24] VITALS: BP 132/74; PULSE 73; RESP 18; TEMP 98.2; O2SAT 95
[2024-10-30 08:18] VITALS: BP 163/72; PULSE 69; RESP 18; TEMP 98.1; O2SAT 94
[2024-10-30 11:28] LABS: HEMOGLOBIN A1C 6.3 % (3.8-5.6)
[2024-10-30 12:03] LABS: CHOL/HDL RATIO 2.7 (4.2-7.3)
[2024-10-30 20:00] VITALS: BP 159/81; PULSE 72; RESP 18; TEMP 98.1; O2SAT 97
[2024-10-30] MEDS: ATORVASTATIN CALCIUM 10 MG TABLET PO SCH (21:01)
[2024-10-31] VITALS (14 sets, daily range): BP systolic 132–169; BP diastolic 61–101; PULSE 60–86; RESP 18–19; TEMP 97.5–98.9; O2SAT 95–99
[2024-10-31] MEDS ORDERED: SODIUM CHLORIDE 0.9% 2,000 ML ONE (08:30)
[2024-10-31] MEDS: LIDOCAINE/PF 1% 2 ML VIAL ID PRN (10:52)
[2024-10-31 12:00] LABS: CREATININE 2.76 mg/dL (0.60-1.30)
[2024-10-31] MEDS: DAPAGLIFLOZIN PROPANEDIOL 5 MG TABLET PO SCH (14:11)
[2024-10-31] MEDS ORDERED: LIDOCAINE/PF 1% 2 ML VIAL ID ONE (17:31)
[2024-11-01 05:08] VITALS: BP 137/71; PULSE 62; RESP 18; TEMP 98; O2SAT 97
[2024-11-01 08:00] VITALS: BP 136/86; PULSE 78; RESP 20; TEMP 98.6; O2SAT 96
[2024-11-01 09:35] LABS: CALCIUM, TOTAL 8.4 mg/dL (8.8-10.5); POTASSIUM 3.9 mmol/L (3.5-5.1)
[2024-11-01 11:56] LABS: GLUCOMETER DEV NAME(LOC) 4E.2; GLUCOSE,POINT OF CARE 143 MG/DL (70-110)
[2024-11-01 15:38] VITALS: BP 134/74; PULSE 78; RESP 18; TEMP 98; O2SAT 93
[2024-11-01 20:00] VITALS: BP 153/71; PULSE 65; RESP 18; TEMP 98.4; O2SAT 96
[2024-11-02 05:37] VITALS: BP 153/74; PULSE 80; RESP 19; TEMP 98.4; O2SAT 98
[2024-11-02 08:52] VITALS: BP 156/74; PULSE 69; RESP 18; TEMP 97.8; O2SAT 96
[2024-11-02] MEDS ORDERED: ONDA-104 PO (13:49)
[2024-11-02] MEDS ORDERED: ATOR10TA69 PO (13:49)
[2024-11-02] MEDS ORDERED: DAPA5TAB6 PO (13:49)
[2024-11-02] MEDS ORDERED: AMLO-257 PO (13:49)
[2024-11-02 16:08] VITALS: BP 145/82; PULSE 66; RESP 18; TEMP 97.8; O2SAT 97
[2024-11-02 19:56] VITALS: BP 152/70; PULSE 69; RESP 20; TEMP 98.1; O2SAT 96
[2024-11-02] MEDS: QUEtiapine FUMARATE 100 MG TABLET PO SCH (20:29)
[2024-11-03] VITALS (11 sets, daily range): BP systolic 130–172; BP diastolic 61–94; PULSE 69–89; RESP 18–20; TEMP 97–98.2; O2SAT 97
[2024-11-03] MEDS ORDERED: LIDOCAINE/PF 1% 2 ML VIAL IV ONE (17:31)
== END 2024-11-03 18:25 | disposition home or self-care (01) | DRG 291 ==
LOC: EMS 21:43 → EDH 10-27 00:02 → 5S 10-27 09:21 → 4E 10-29 05:30
PROVIDERS: ADMIT Internal Medicine; ATTEND Internal Medicine
PROC: 5A1D70Z Performance of Urinary Filtration, Intermittent, Less than 6 Hours Per Day (ICD-10-PCS; principal; 2024-10-28)
PROC: 5A1D70Z Performance of Urinary Filtration, Intermittent, Less than 6 Hours Per Day (ICD-10-PCS; 2024-10-29)
PROC: 5A1D70Z Performance of Urinary Filtration, Intermittent, Less than 6 Hours Per Day (ICD-10-PCS; 2024-10-31)
PROC: 5A1D70Z Performance of Urinary Filtration, Intermittent, Less than 6 Hours Per Day (ICD-10-PCS; 2024-11-03)
DX: I13.2 Hypertensive heart and chronic kidney disease with heart failure and with stage 5 chronic kidney disease, or end stage renal disease (principal); I50.33 Acute on chronic diastolic (congestive) heart failure; N18.6 End stage renal disease; E46 Unspecified protein-calorie malnutrition; F11.20 Opioid dependence, uncomplicated; N25.81 Secondary hyperparathyroidism of renal origin; E87.5 Hyperkalemia; E83.51 Hypocalcemia; E11.22 Type 2 diabetes mellitus with diabetic chronic kidney disease; F17.210 Nicotine dependence, cigarettes, uncomplicated; K74.60 Unspecified cirrhosis of liver; E66.9 Obesity, unspecified; D69.6 Thrombocytopenia, unspecified; R10.11 Right upper quadrant pain; F31.9 Bipolar disorder, unspecified; D63.1 Anemia in chronic kidney disease; R62.7 Adult failure to thrive; E83.39 Other disorders of phosphorus metabolism; Z99.2 Dependence on renal dialysis; Z79.899 Other long term (current) drug therapy; Z82.49 Family history of ischemic heart disease and other diseases of the circulatory system; Z83.3 Family history of diabetes mellitus; Z88.0 Allergy status to penicillin; Z91.158 Patient's noncompliance with renal dialysis for other reason; Z68.31 Body mass index [BMI] 31.0-31.9, adult
CPT/HCPCS: 71045; 74177; 76705; 80048; 80061; 80076; 81001; 81002; 82550; 82565; 82962; 83036; 83540; 83550; 83690; 83735; 83880; 84484; 84520; 85025; 85045; 87340; 90935; 93005; 93306; 99285; G0378; J0885; J1171; J1644; J2405; J3490; J7030; J7050; 36415-L1; 36415-TC

== ENCOUNTER 2024-11-06 00:17 | Inpatient (IN) | payer MEDICARE, OTHER ==
[~2024-11-06] VITALS: Ht 188 cm; Wt 113.0 kg
[~2024-11-06 00:17] MED LIST changes: +AMLO-257 PO; +ATOR10TA69 PO; +DAPA5TAB6 PO; -LISI-893 PO; -METF-1211 PO; -NALT50TA33 PO; +ONDA-104 PO; -SERT-158 PO
[2024-11-06 01:34] LABS: BASOPHILS % (AUTO) 0.4 % (0.0-2.0); EOSINOPHILS % (AUTO) 3.2 % (1.0-6.0); HEMATOCRIT 27.3 % (41-53); HEMOGLOBIN 9.3 g/dL (13.5-17.5); LYMPHOCYTES # (AUTO) 0.6 K/uL (1.0-4.8); LYMPHOCYTES % (AUTO) 10.1 % (22.0-44.0); MEAN CORPUSCULAR HGB CONC 34.1 G/dL (31.0-37.0); MEAN CORPUSCULAR VOLUME 94 fL (80-100); MONOCYTES # (AUTO) 0.6 K/uL (0.1-1.0); MONOCYTES % (AUTO) 9.6 % (2.0-9.0); NEUTROPHILS # (AUTO) 4.5 K/uL (1.8-7.7); NEUTROPHILS % (AUTO) 76.7 % (40.0-70.0); PLATELET COUNT (AUTO) 105 K/uL (150-450); RED BLOOD CELL COUNT(AUTO) 2.92 MIL/uL (4.50-5.90); RED CELL DISTRIBUTION WIDTH 14.9 % (11.5-14.5); WHITE BLOOD COUNT (AUTO) 5.9 K/uL (4.5-11.0)
[2024-11-06 01:45] LABS: CALCIUM, TOTAL 8.3 mg/dL (8.8-10.5); CREATININE 7.36 mg/dL (0.60-1.30); POTASSIUM 4.1 mmol/L (3.5-5.1)
[2024-11-06 01:54] LABS: TROPONIN I-HIGH SENSITIVITY 50 ng/L (<76)
[2024-11-06] MEDS: CloNIDine HCL 0.1 MG TABLET PO ONE (02:41)
[2024-11-06] MEDS: ONDANSETRON HCL 4 MG/2 ML VIAL IVP ONE (02:42)
[2024-11-06] MEDS: ACETAMINOPHEN 650 MG/ISO-OSM 65 ML IV ONE (03:04)
[2024-11-06] MEDS ORDERED: ONDANSETRON HCL 4 MG/2 ML VIAL IVP PRN (03:15)
[2024-11-06] MEDS ORDERED: CloNIDine HCL 0.1 MG TABLET PO PRN (03:15)
[2024-11-06] MEDS ORDERED: BISACODYL 10 MG RECTAL RECTAL SUPPOSITORY PR PRN (03:15)
[2024-11-06] MEDS ORDERED: DEXTROSE 50%-WATER 25 GM/50 ML SYRINGE IVP PRN (03:15)
[2024-11-06 03:57] LABS: APPEARANCE,URINE CLEAR (CLEAR); BILIRUBIN,URINE NEGATIVE (NEGATIVE); COLOR,URINE LIGHT YELLOW (YELLOW); GLUCOSE, URINE (UA) >=1000 mg/dL (NEGATIVE); KETONES,URINE NEGATIVE (NEGATIVE); LEUKOCYTE ESTERASE ,URINE NEGATIVE (NEGATIVE); NITRATE,URINE NEGATIVE (NEGATIVE); OCCULT BLOOD,URINE TRACE (NEGATIVE); PH,URINE 7.5 (5.0-8.0); PROTEIN,URINE >600,SEE CONFIRM mg/dL (NEGATIVE); SPECIFIC GRAVITIY, URINE 1.016 (1.003-1.030); UROBILINOGEN,URINE <=1.0 mg/dL (<=1.0)
[2024-11-06 04:17] LABS: BACTERIA,URINE None Seen /HPF (None Seen); RBC,URINE 0-2 /HPF (0-2); SQUAMOUS EPITHELIAL CELL,UR Few /LPF (None Seen); SULFOSALICYLIC ACID,URINE 4+ (Negative); WBC,URINE None Seen /HPF (0-5)
[2024-11-06] MEDS: OxyCODONE HCL 5 MG IR TABLET PO ONE (04:45)
[2024-11-06] MEDS: ZOLPIDEM TARTRATE 5 MG TABLET PO PRN (05:23)
[2024-11-06] MEDS: HEPARIN SODIUM,PORCINE 5,000 UNITS/ML VIAL SQ SCH (07:30)
[2024-11-06] MEDS: AmLODIPine BESYLATE 10 MG TABLET PO SCH (08:57)
[2024-11-06] MEDS: DOCUSATE SODIUM 100 MG CAPSULE PO SCH (08:57)
[2024-11-06] MEDS: FAMOTIDINE 20 MG TABLET PO SCH (08:57)
[2024-11-06] MEDS: OxyCODONE HCL/ACETAMINOPHEN 5-325 MG TABLET PO PRN (14:23)
[2024-11-06] MEDS: PARICALCITOL 1 MCG CAPSULE PO ONE (14:24)
[2024-11-06 18:21] VITALS: BP 148/84; PULSE 78; RESP 15; TEMP 98.2; O2SAT 96
[2024-11-06 20:03] VITALS: BP 146/71; PULSE 61; RESP 17; TEMP 97.6; O2SAT 99
[2024-11-06] MEDS: HYDROmorphone HCL 2 MG/ML SYRINGE IVP PRN (20:18)
[2024-11-06] MEDS: INSULIN LISPRO 100 UNITS/ML SQ PRN (20:23)
[2024-11-07] VITALS (13 sets, daily range): BP systolic 120–151; BP diastolic 61–87; PULSE 62–83; RESP 17–19; TEMP 97.4–98; O2SAT 97–99
[2024-11-07 00:31] LABS: GLUCOMETER DEV NAME(LOC) 5N.1D; GLUCOSE,POINT OF CARE 186 MG/DL (70-110)
[2024-11-07 10:56] LABS: GLUCOMETER DEV NAME(LOC) 5S.2D; GLUCOSE,POINT OF CARE 141 MG/DL (70-110)
[2024-11-07] MEDS ORDERED: SODIUM CHLORIDE 0.9% 1,000 ML ONE ×2 (19:49)
[2024-11-08 00:31] LABS: GLUCOMETER DEV NAME(LOC) 5N.1D; GLUCOSE,POINT OF CARE 132 MG/DL (70-110)
[2024-11-08 00:31] LABS: GLUCOMETER DEV NAME(LOC) 5N.1D; GLUCOSE,POINT OF CARE 158 MG/DL (70-110)
[2024-11-08 00:32] LABS: GLUCOMETER DEV NAME(LOC) 5N.1D; GLUCOSE,POINT OF CARE 190 MG/DL (70-110)
[2024-11-08 03:54] VITALS: BP 140/70; PULSE 71; RESP 19; TEMP 98.1; O2SAT 96
[2024-11-08 07:06] LABS: GLUCOMETER DEV NAME(LOC) 5S.2D; GLUCOSE,POINT OF CARE 137 MG/DL (70-110)
[2024-11-08 07:27] LABS: BASOPHILS % (AUTO) 0.4 % (0.0-2.0); EOSINOPHILS % (AUTO) 3.8 % (1.0-6.0); HEMATOCRIT 26.7 % (41-53); HEMOGLOBIN 9.4 g/dL (13.5-17.5); LYMPHOCYTES # (AUTO) 0.6 K/uL (1.0-4.8); LYMPHOCYTES % (AUTO) 13.8 % (22.0-44.0); MEAN CORPUSCULAR HEMOGLOBIN 32.8 pg (26.0-34.0); MEAN CORPUSCULAR VOLUME 94 fL (80-100); MONOCYTES # (AUTO) 0.4 K/uL (0.1-1.0); MONOCYTES % (AUTO) 9.4 % (2.0-9.0); NEUTROPHILS # (AUTO) 3.1 K/uL (1.8-7.7); NEUTROPHILS % (AUTO) 72.6 % (40.0-70.0); PLATELET COUNT (AUTO) 99 K/uL (150-450); RED BLOOD CELL COUNT(AUTO) 2.86 MIL/uL (4.50-5.90); RED CELL DISTRIBUTION WIDTH 16.1 % (11.5-14.5); WHITE BLOOD COUNT (AUTO) 4.3 K/uL (4.5-11.0)
[2024-11-08 07:30] VITALS: BP 138/68; PULSE 74; RESP 18; TEMP 98; O2SAT 97
[2024-11-08 07:47] LABS: CALCIUM, TOTAL 7.9 mg/dL (8.8-10.5); CREATININE 5.59 mg/dL (0.60-1.30); POTASSIUM 4.6 mmol/L (3.5-5.1)
[2024-11-08] MEDS: CLINDAMYCIN HCL 300 MG CAPSULE PO SCH (11:54)
[2024-11-08] MEDS: ACETAMINOPHEN 325 MG TABLET PO PRN (11:55)
[2024-11-08] MEDS ORDERED: CLIN300C58 PO (12:06)
[2024-11-08 18:31] LABS: GLUCOMETER DEV NAME(LOC) 5S.2D; GLUCOSE,POINT OF CARE 162 MG/DL (70-110)
[2024-11-09] MEDS ORDERED: EPOETIN ALFA 10,000 UNITS/ML VIAL SQ SCH (09:00)
== END 2024-11-08 14:30 | disposition home or self-care (01) | DRG 640 ==
LOC: EMS 00:18 → EDH 03:14 → 5S 18:06
PROVIDERS: ADMIT Internal Medicine; ATTEND Internal Medicine
PROC: 5A1D70Z Performance of Urinary Filtration, Intermittent, Less than 6 Hours Per Day (ICD-10-PCS; principal; 2024-11-07)
DX: E87.70 Fluid overload, unspecified (principal); N18.6 End stage renal disease; E46 Unspecified protein-calorie malnutrition; F11.20 Opioid dependence, uncomplicated; I13.2 Hypertensive heart and chronic kidney disease with heart failure and with stage 5 chronic kidney disease, or end stage renal disease; N25.81 Secondary hyperparathyroidism of renal origin; L02.01 Cutaneous abscess of face; R64 Cachexia; D63.1 Anemia in chronic kidney disease; E11.22 Type 2 diabetes mellitus with diabetic chronic kidney disease; E66.9 Obesity, unspecified; E83.39 Other disorders of phosphorus metabolism; E83.51 Hypocalcemia; E88.09 Other disorders of plasma-protein metabolism, not elsewhere classified; F31.9 Bipolar disorder, unspecified; R62.7 Adult failure to thrive; I50.9 Heart failure, unspecified; F17.210 Nicotine dependence, cigarettes, uncomplicated; K74.60 Unspecified cirrhosis of liver; Z82.49 Family history of ischemic heart disease and other diseases of the circulatory system; Z88.0 Allergy status to penicillin; Z91.158 Patient's noncompliance with renal dialysis for other reason; Z91.199 Patient's noncompliance with other medical treatment and regimen due to unspecified reason; Z99.2 Dependence on renal dialysis; Z68.32 Body mass index [BMI] 32.0-32.9, adult
CPT/HCPCS: 71045; 80048; 81001; 81002; 82962; 83880; 84484; 85025; 87081; 90935; 93005; 99285; J0131; J1171; J1644; J2405; J7030; 36415-L1; 36415-TC

== ENCOUNTER 2024-11-21 21:46 | Inpatient (IN) | payer MEDICARE, OTHER ==
[~2024-11-21] VITALS: Ht 185.4 cm; Wt 109.1 kg
[~2024-11-21 21:46] MED LIST changes: +CLIN300C58 PO; -CLON0.1T2 PO; -LITH300C3 PO; -NALT50TA6 PO; -ONDA-104 PO
[2024-11-21 22:43] LABS: BASOPHILS % (AUTO) 1.4 % (0.0-2.0); EOSINOPHILS % (AUTO) 4.7 % (1.0-6.0); HEMATOCRIT 29.5 % (41-53); HEMOGLOBIN 10.2 g/dL (13.5-17.5); LYMPHOCYTES # (AUTO) 0.7 K/uL (1.0-4.8); LYMPHOCYTES % (AUTO) 16.9 % (22.0-44.0); MEAN CORPUSCULAR HEMOGLOBIN 31.6 pg (26.0-34.0); MEAN CORPUSCULAR HGB CONC 34.5 G/dL (31.0-37.0); MEAN CORPUSCULAR VOLUME 92 fL (80-100); MONOCYTES # (AUTO) 0.3 K/uL (0.1-1.0); MONOCYTES % (AUTO) 8.7 % (2.0-9.0); NEUTROPHILS # (AUTO) 2.7 K/uL (1.8-7.7); NEUTROPHILS % (AUTO) 68.3 % (40.0-70.0); RED BLOOD CELL COUNT(AUTO) 3.22 MIL/uL (4.50-5.90)
[2024-11-21 22:50] LABS: CALCIUM, TOTAL 7.2 mg/dL (8.8-10.5); CREATININE 6.09 mg/dL (0.60-1.30); POTASSIUM 4.1 mmol/L (3.5-5.1)
[2024-11-21 22:59] LABS: PLATELET COUNT (AUTO) 95 K/uL (150-450); RBC MORPHOLOGY COMMENT NORMAL RBC MORPH
[2024-11-21 23:00] LABS: TROPONIN I-HIGH SENSITIVITY 23 ng/L (<76)
[2024-11-21 23:12] LABS: ALBUMIN 2.9 g/dL (3.4-5.0); BILIRUBIN,DIRECT 0.1 mg/dL (0.00-0.20); BILIRUBIN,TOTAL 0.4 mg/dL (0.1-1.0); TOTAL PROTEIN, SERUM 5.8 g/dL (6.4-8.2)
[2024-11-21] MEDS: MORPHINE SULFATE 2 MG/ML SYRINGE IVP ONE (23:37)
[2024-11-21] MEDS: HEPARIN SODIUM,PORCINE 5,000 UNITS/ML VIAL SQ SCH (23:53)
[2024-11-22] MEDS ORDERED: IOHEXOL 350 MG/ML 100 ML VIAL ONE (01:06)
[2024-11-22] MEDS: HYDROmorphone HCL 2 MG/ML SYRINGE IVP PRN (03:43)
[2024-11-22 06:56] VITALS: BP 174/78; PULSE 72; RESP 18; TEMP 97.6; O2SAT 99
[2024-11-22 07:35] VITALS: BP 144/76; PULSE 62; RESP 18; TEMP 97.9; O2SAT 96
[2024-11-22 07:43] LABS: BASOPHILS % (AUTO) 0.4 % (0.0-2.0); EOSINOPHILS % (AUTO) 4.8 % (1.0-6.0); HEMATOCRIT 29.8 % (41-53); HEMOGLOBIN 10.2 g/dL (13.5-17.5); LYMPHOCYTES # (AUTO) 0.6 K/uL (1.0-4.8); LYMPHOCYTES % (AUTO) 17.6 % (22.0-44.0); MEAN CORPUSCULAR HEMOGLOBIN 31.6 pg (26.0-34.0); MEAN CORPUSCULAR HGB CONC 34.1 G/dL (31.0-37.0); MEAN CORPUSCULAR VOLUME 93 fL (80-100); MONOCYTES # (AUTO) 0.3 K/uL (0.1-1.0); MONOCYTES % (AUTO) 8.9 % (2.0-9.0); NEUTROPHILS # (AUTO) 2.5 K/uL (1.8-7.7); NEUTROPHILS % (AUTO) 68.3 % (40.0-70.0); PLATELET COUNT (AUTO) 89 K/uL (150-450); RED BLOOD CELL COUNT(AUTO) 3.22 MIL/uL (4.50-5.90); RED CELL DISTRIBUTION WIDTH 14.7 % (11.5-14.5); WHITE BLOOD COUNT (AUTO) 3.6 K/uL (4.5-11.0)
[2024-11-22 07:47] LABS: CALCIUM, TOTAL 7.5 mg/dL (8.8-10.5); CREATININE 6.2 mg/dL (0.60-1.30); MAGNESIUM 1.7 mg/dL (1.80-2.40); POTASSIUM 4.3 mmol/L (3.5-5.1)
[2024-11-22 07:52] VITALS: BP 144/76; PULSE 62; RESP 18; TEMP 97.9; O2SAT 96
[2024-11-22] MEDS: DOCUSATE SODIUM 100 MG CAPSULE PO SCH (08:01)
[2024-11-22] MEDS: SERTRALINE HCL 50 MG TABLET PO SCH (08:27)
[2024-11-22] MEDS: DAPAGLIFLOZIN PROPANEDIOL 5 MG TABLET PO SCH (08:27)
[2024-11-22] MEDS ORDERED: AMLO-258 PO (13:44)
[2024-11-22] MEDS ORDERED: DEXTROSE 50%-WATER 25 GM/50 ML SYRINGE IVP PRN (13:45)
[2024-11-22 15:01] VITALS: BP 160/75; PULSE 57; RESP 20; TEMP 97.7; O2SAT 97
[2024-11-22] MEDS: HydrALAZINE HCL 50 MG TABLET PO SCH (16:30)
[2024-11-22 17:16] LABS: GLUCOMETER DEV NAME(LOC) 4E.2; GLUCOSE,POINT OF CARE 105 MG/DL (70-110)
[2024-11-22] MEDS: AmLODIPine BESYLATE 10 MG TABLET PO SCH (20:36)
[2024-11-22] MEDS: ATORVASTATIN CALCIUM 10 MG TABLET PO SCH (20:36)
[2024-11-22] MEDS: PARICALCITOL 1 MCG CAPSULE PO ONE (20:36)
[2024-11-22] MEDS: INSULIN LISPRO 100 UNITS/ML SQ PRN (20:37)
[2024-11-22 20:39] VITALS: BP 154/76; PULSE 70; RESP 20; TEMP 98.2; O2SAT 98
[2024-11-22] MEDS: QUEtiapine FUMARATE 25 MG TABLET PO PRN (21:52)
[2024-11-23] VITALS (15 sets, daily range): BP systolic 16–175; BP diastolic 61–93; PULSE 63–83; RESP 18–20; TEMP 97.9–98.4; O2SAT 95–98
[2024-11-23 00:01] LABS: GLUCOMETER DEV NAME(LOC) 4E.2; GLUCOSE,POINT OF CARE 163 MG/DL (70-110)
[2024-11-23 06:11] LABS: GLUCOMETER DEV NAME(LOC) 5S.1D; GLUCOSE,POINT OF CARE 107 MG/DL (70-110)
[2024-11-23 07:42] LABS: CALCIUM, TOTAL 7.8 mg/dL (8.8-10.5); CREATININE 6.16 mg/dL (0.60-1.30); MAGNESIUM 1.8 mg/dL (1.80-2.40); POTASSIUM 4.6 mmol/L (3.5-5.1)
[2024-11-23 07:44] LABS: BASOPHILS % (AUTO) 0.3 % (0.0-2.0); EOSINOPHILS % (AUTO) 5.1 % (1.0-6.0); HEMOGLOBIN 9.9 g/dL (13.5-17.5); LYMPHOCYTES # (AUTO) 0.6 K/uL (1.0-4.8); LYMPHOCYTES % (AUTO) 16.3 % (22.0-44.0); MEAN CORPUSCULAR HEMOGLOBIN 31.6 pg (26.0-34.0); MEAN CORPUSCULAR HGB CONC 34.3 G/dL (31.0-37.0); MEAN CORPUSCULAR VOLUME 92 fL (80-100); MONOCYTES # (AUTO) 0.3 K/uL (0.1-1.0); MONOCYTES % (AUTO) 7.3 % (2.0-9.0); NEUTROPHILS # (AUTO) 2.6 K/uL (1.8-7.7); PLATELET COUNT (AUTO) 85 K/uL (150-450); RED BLOOD CELL COUNT(AUTO) 3.15 MIL/uL (4.50-5.90); RED CELL DISTRIBUTION WIDTH 14.6 % (11.5-14.5); WHITE BLOOD COUNT (AUTO) 3.6 K/uL (4.5-11.0)
[2024-11-23] MEDS: EPOETIN ALFA 10,000 UNITS/ML VIAL SQ SCH (08:05)
[2024-11-23] MEDS ORDERED: SODIUM CHLORIDE 0.9% 2,000 ML ONE (10:29)
[2024-11-23 15:46] LABS: GLUCOMETER DEV NAME(LOC) 5S.1D; GLUCOSE,POINT OF CARE 122 MG/DL (70-110)
[2024-11-23] MEDS: HydrALAZINE HCL 50 MG TABLET PO SCH (16:11)
[2024-11-23] MEDS: ONDANSETRON HCL 4 MG/2 ML VIAL IVP PRN (16:11)
[2024-11-23 19:11] LABS: GLUCOMETER DEV NAME(LOC) 4E.2; GLUCOSE,POINT OF CARE 155 MG/DL (70-110)
[2024-11-23] MEDS: METOPROLOL TARTRATE 25 MG TABLET PO SCH (20:37)
[2024-11-23] MEDS: ACETAMINOPHEN 325 MG TABLET PO PRN (21:55)
[2024-11-24 00:31] LABS: GLUCOMETER DEV NAME(LOC) 5S.1D; GLUCOSE,POINT OF CARE 132 MG/DL (70-110)
[2024-11-24 04:40] VITALS: BP 136/65; PULSE 75; RESP 19; TEMP 98.2; O2SAT 95
[2024-11-24 07:06] LABS: GLUCOMETER DEV NAME(LOC) 4E.2; GLUCOSE,POINT OF CARE 103 MG/DL (70-110)
[2024-11-24 08:33] VITALS: BP 121/54; PULSE 70; RESP 18; TEMP 98.1; O2SAT 94
[2024-11-24 17:10] VITALS: BP 130/59; PULSE 61; RESP 18; TEMP 98.1; O2SAT 96
[2024-11-24] MEDS: METOCLOPRAMIDE HCL 5 MG/ML 2 ML VIAL IVP SCH (17:52)
[2024-11-24 19:37] VITALS: BP 124/60; PULSE 72; RESP 18; TEMP 98.3; O2SAT 95
[2024-11-24 21:31] LABS: GLUCOMETER DEV NAME(LOC) 5S.1D; GLUCOSE,POINT OF CARE 123 MG/DL (70-110)
[2024-11-24 21:31] LABS: GLUCOMETER DEV NAME(LOC) 5S.1D; GLUCOSE,POINT OF CARE 144 MG/DL (70-110)
[2024-11-24 23:58] VITALS: BP 118/62; PULSE 62
[2024-11-25] VITALS (10 sets, daily range): BP systolic 106–136; BP diastolic 53–78; PULSE 53–81; RESP 18; TEMP 98.2; O2SAT 95
[2024-11-25 06:46] LABS: GLUCOMETER DEV NAME(LOC) 5S.1D; GLUCOSE,POINT OF CARE 120 MG/DL (70-110)
[2024-11-25 07:15] LABS: BASOPHILS % (AUTO) 0.3 % (0.0-2.0); EOSINOPHILS % (AUTO) 3.7 % (1.0-6.0); HEMATOCRIT 30.4 % (41-53); HEMOGLOBIN 10.6 g/dL (13.5-17.5); LYMPHOCYTES # (AUTO) 0.7 K/uL (1.0-4.8); LYMPHOCYTES % (AUTO) 14.3 % (22.0-44.0); MEAN CORPUSCULAR HEMOGLOBIN 32.1 pg (26.0-34.0); MEAN CORPUSCULAR HGB CONC 34.7 G/dL (31.0-37.0); MEAN CORPUSCULAR VOLUME 92 fL (80-100); MONOCYTES # (AUTO) 0.5 K/uL (0.1-1.0); MONOCYTES % (AUTO) 8.7 % (2.0-9.0); NEUTROPHILS # (AUTO) 3.8 K/uL (1.8-7.7); PLATELET COUNT (AUTO) 114 K/uL (150-450); RED CELL DISTRIBUTION WIDTH 14.7 % (11.5-14.5); WHITE BLOOD COUNT (AUTO) 5.2 K/uL (4.5-11.0)
[2024-11-25 07:16] LABS: CREATININE 6.6 mg/dL (0.60-1.30); POTASSIUM 4.7 mmol/L (3.5-5.1)
[2024-11-25] MEDS ORDERED: SODIUM CHLORIDE 0.9% 1,000 ML ONE (10:29)
[2024-11-25 11:46] LABS: GLUCOMETER DEV NAME(LOC) 4E.2; GLUCOSE,POINT OF CARE 116 MG/DL (70-110)
[2024-11-25] MEDS ORDERED: AMLO-258 PO (14:14)
[2024-11-25] MEDS ORDERED: METO5TAB95 PO (14:14)
[2024-11-25] MEDS ORDERED: HYDR50TA37 PO (14:14)
[2024-11-25] MEDS ORDERED: METO25 PO (14:14)
[2024-11-25] MEDS ORDERED: DOCU-385 PO (14:16)
[2024-11-25 19:51] LABS: GLUCOMETER DEV NAME(LOC) 5S.1D; GLUCOSE,POINT OF CARE 120 MG/DL (70-110)
== END 2024-11-25 16:08 | disposition home or self-care (01) | DRG 291 ==
LOC: EMS 21:46 → EDH 11-22 05:39 → 4E 11-22 06:49
PROVIDERS: ADMIT Internal Medicine; ATTEND Internal Medicine
PROC: 5A1D70Z Performance of Urinary Filtration, Intermittent, Less than 6 Hours Per Day (ICD-10-PCS; principal; 2024-11-23)
PROC: 5A1D70Z Performance of Urinary Filtration, Intermittent, Less than 6 Hours Per Day (ICD-10-PCS; 2024-11-25)
DX: I13.2 Hypertensive heart and chronic kidney disease with heart failure and with stage 5 chronic kidney disease, or end stage renal disease (principal); I50.33 Acute on chronic diastolic (congestive) heart failure; N18.6 End stage renal disease; E46 Unspecified protein-calorie malnutrition; N25.81 Secondary hyperparathyroidism of renal origin; E11.22 Type 2 diabetes mellitus with diabetic chronic kidney disease; K31.84 Gastroparesis; Z99.2 Dependence on renal dialysis; D69.6 Thrombocytopenia, unspecified; E83.51 Hypocalcemia; R62.7 Adult failure to thrive; D63.1 Anemia in chronic kidney disease; K59.00 Constipation, unspecified; F17.210 Nicotine dependence, cigarettes, uncomplicated; E83.39 Other disorders of phosphorus metabolism; F31.9 Bipolar disorder, unspecified; E87.5 Hyperkalemia; E66.9 Obesity, unspecified; R04.0 Epistaxis; Z91.158 Patient's noncompliance with renal dialysis for other reason; Z88.0 Allergy status to penicillin; Z68.31 Body mass index [BMI] 31.0-31.9, adult; Z79.899 Other long term (current) drug therapy
CPT/HCPCS: 71045; 74019; 74177; 76705; 80048; 80076; 82550; 82962; 83735; 83880; 84484; 85025; 87081; 87340; 90935; 93005; 99285; G0378; J0885; J1171; J1644; J2270; J2405; J2765; J7030; 36415-L1; 36415-TC